=== PATIENT | female | born 1950 | race Caucasian/White ===

== ENCOUNTER → 2020-06-30 | Outpatient (CLI) | payer OTHER | LOC: KOH-I 09:53 | DX: M25.561 Pain in right knee (principal); M89.9 Disorder of bone, unspecified | CPT/HCPCS: 73721 ==

== ENCOUNTER → 2020-08-02 | Outpatient (CLI) | payer OTHER | LOC: KOH-I 12:28 | DX: M25.551 Pain in right hip (principal); M54.5 Low back pain; Z91.81 History of falling | CPT/HCPCS: 72100; 73502; 73552 ==

== ENCOUNTER → 2020-08-26 | Outpatient (CLI) | payer OTHER | LOC: KOH-I 08:40 | DX: M51.26 Other intervertebral disc displacement, lumbar region (principal); M25.551 Pain in right hip | CPT/HCPCS: 72148; 73721 ==

== ENCOUNTER → 2020-12-29 | Outpatient (CLI) | payer MEDICARE, OTHER | LOC: ECHO 11:05 | DX: I50.9 Heart failure, unspecified (principal) | CPT/HCPCS: ECHO; 93306 ==

== ENCOUNTER → 2021-02-01 | Outpatient (CLI) | payer MEDICARE, OTHER | LOC: MRI 11:07 | DX: H91.8X9 Other specified hearing loss, unspecified ear (principal) | CPT/HCPCS: 36415; 70553; 82565; A9577 ==

== ENCOUNTER → 2021-05-23 | Outpatient (CLI) | payer MEDICARE | LOC: HEART 5 05-22 15:30 | DX: I25.10 Atherosclerotic heart disease of native coronary artery without angina pectoris (principal); R00.2 Palpitations | CPT/HCPCS: 78452; A9502; J2785 ==